=== PATIENT | male | born 1980 | race Two or more races ===

== ENCOUNTER 2023-04-01 11:27 | Emergency (ER) | payer OTHER ==
[~2023-04-01] VITALS: Ht 170.2 cm; Wt 84.4 kg
[2023-04-01] MEDS ORDERED: TAMS-35 PO (12:23)
[2023-04-01 12:31] VITALS: BP 93/72; PULSE 73; RESP 18; O2SAT 95
== END 2023-04-01 12:39 | disposition home or self-care (01) ==
LOC: ER 11:27
DX: N31.9 Neuromuscular dysfunction of bladder, unspecified (principal); R33.9 Retention of urine, unspecified; F17.210 Nicotine dependence, cigarettes, uncomplicated; F15.90 Other stimulant use, unspecified, uncomplicated; Z98.890 Other specified postprocedural states

== ENCOUNTER 2023-04-03 15:53 | Emergency (ER) | payer OTHER ==
[~2023-04-03] VITALS: Ht 170.2 cm; Wt 86.4 kg
[~2023-04-03 15:53] MED LIST: TAMS-35 PO
[2023-04-03] MEDS ORDERED: CEPH250C PO (16:55)
[2023-04-03] MEDS ORDERED: LIDOCAINE 2% JELLY 11ml (GLYDO) UR ONE (18:45)
[2023-04-03 19:01] VITALS: BP 134/88; PULSE 84; RESP 16; TEMP 97.8; O2SAT 97
== END 2023-04-03 19:08 | disposition home or self-care (01) ==
LOC: ER 15:53
DX: R33.9 Retention of urine, unspecified (principal); N31.2 Flaccid neuropathic bladder, not elsewhere classified
CPT/HCPCS: 51702

== ENCOUNTER → 2023-04-28 | Outpatient (CLI) | payer OTHER ==
[~2023-04-28] MED LIST changes: +CEPH250C PO
[2023-04-28 17:02] LABS: Urine Bacteria FEW /hpf (None Seen); Urine Blood 2+ /uL (Negative); Urine Clarity HAZY (Clear); Urine Color Yellow (Yellow); Urine Protein, UAD 1+ (Negative); Urine Specific Gravity 1.022 (1.001-1.035); Urine Urobilinogen Normal (Negative); Urine WBC 69 /hpf (0 - 3)
== END | disposition home or self-care (01) ==
LOC: LAB 16:21
PROVIDERS: ATTEND Urology
DX: R33.9 Retention of urine, unspecified (principal)
CPT/HCPCS: 81001; 87086; 87088; 87186

== ENCOUNTER 2023-05-16 07:29 | Day surgery (SDC) | payer OTHER ==
[2023-05-12 12:31] LABS: Basophils # (auto) 0.1 10 ^3/uL (0-0.2); Eosinophils # (auto) 0.1 10 ^3/uL (0-0.8); Eosinophils % (auto) 2.3 % (0.0-7.0); Hematocrit 44.7 % (41.0-53.0); Hemoglobin 15.3 g/dL (13.5-17.5); Lymphocytes % (auto) 32.4 % (10.0-50.0); Mean Corpuscular Hemoglobin 29.2 pg (28.0-32.0); Mean Corpuscular Hgb Conc. 34.1 g/dL (32.0-36.0); Mean Corpuscular Volume 85.6 fL (80.0-100.0); Monocytes # (auto) 0.5 10 ^3/uL (0-1.3); Monocytes % (auto) 8.2 % (0.0-12.0); Neutrophils # (auto) 3.5 10 ^3/uL (1.6-8.6); Neutrophils % (auto) 56.1 % (37.0-80.0); Nucleated Red Blood Cells % 0.1 %; Red Blood Cells 5.22 10^6/uL (4.5-5.90); Red Cell Distribution Width 13.2 % (11.8-14.3); White Blood Cell 6.3 10^3/uL (4.4-10.8)
[2023-05-12 12:46] LABS: INR 0.99 (0.9-1.15); Partial Thromboplastin Time 27.7 SEC (24.5-34.5); Prothrombin Time 10.4 sec (9.3-11.8)
[2023-05-12 12:54] LABS: Alanine Aminotransferase 62 U/L (7-40); Albumin 4.5 g/dL (3.2-4.8); Alkaline Phosphatase 91 U/L (46-116); Anion Gap 7 (5-15); Aspartate Aminotransferase 24 U/L (13-40); BUN/Creatinine Ratio 11.8 (10.0-20.0); Blood Urea Nitrogen 13 mg/dL (9-23); Calcium 9.3 mg/dL (8.7-10.4); Carbon Dioxide 27 mmol/L (20-30); Chloride 103 mmol/L (98-107); Glucose 108 mg/dL (74-106); Potassium 3.5 mmol/L (3.5-5.1); Sodium 137 mmol/L (136-145)
[2023-05-12 12:55] LABS: Bilirubin, Total 0.5 mg/dL (0.2-1.0); Total Protein 7.2 g/dL (5.7-8.2)
[2023-05-12 14:28] LABS: Urine Bacteria NONE SEEN /hpf (None Seen); Urine Clarity CLEAR (Clear); Urine Color Yellow (Yellow); Urine Mucus FEW (None Seen); Urine Specific Gravity 1.025 (1.001-1.035); Urine WBC 5 /hpf (0 - 3)
[2023-05-12 14:29] LABS: Urine Blood Trace /uL (Negative); Urine Protein, UAD 1+ (Negative); Urine Urobilinogen Normal (Negative)
[~2023-05-16] VITALS: Ht 170.2 cm; Wt 84.8 kg
[2023-05-16] MEDS ORDERED: fentaNYL CITRATE 100 MCG/2 ML VL ONE (09:59)
[2023-05-16] MEDS ORDERED: PROPOFOL 10 MG/ML 20 ML IV ONE (09:59)
[2023-05-16] MEDS ORDERED: ONDANSETRON HCL 4 MG/2 ML VIAL IV PRN (10:00)
[2023-05-16] MEDS ORDERED: METOCLOPRAMIDE HCL 5MG/ml INJ 2ml VIAL IV PRN (10:00)
[2023-05-16] MEDS ORDERED: HYDROmorphone HCL 2 MG/ML VL/or syr IV PRN (10:00)
[2023-05-16] MEDS ORDERED: MEPERIDINE HCL (25 MG/ML) 1ML VIAL IV PRN (10:00)
[2023-05-16] MEDS ORDERED: cefTRIAXone 1GM/50ML D5W 50 ML IV ONE (10:13)
[2023-05-16] MEDS ORDERED: MEPERIDINE HCL (25 MG/ML) 1ML VIAL ONE (10:31)
[2023-05-16] MEDS ORDERED: DexAMETHasone SOD PHOS 10MG/1ML VIAL INJ ONE (10:37)
[2023-05-16] MEDS ORDERED: ONDANSETRON HCL 4 MG/2 ML VIAL ONE (10:37)
[2023-05-16 10:47] VITALS: TEMP 97; O2SAT 94
[2023-05-16 11:46] VITALS: BP 121/80; PULSE 69; RESP 12; O2SAT 100
== END 2023-05-16 11:48 | disposition home or self-care (01) ==
LOC: SUR 07:29
PROVIDERS: ATTEND Urology
DX: N35.819 Other urethral stricture, male, unspecified site (principal); N32.3 Diverticulum of bladder; N32.89 Other specified disorders of bladder; N31.9 Neuromuscular dysfunction of bladder, unspecified
CPT/HCPCS: 36415; 52281; 80053; 81001; 85025; 85610; 85730; 87086; C1769; J0696; J1100; J2175; J2405; J2704; J3010; J7030

== ENCOUNTER 2023-06-27 03:47 | Emergency (ER) | payer OTHER ==
[~2023-06-27] VITALS: Ht 170.2 cm; Wt 86.3 kg
[2023-06-27 07:50] VITALS: BP 121/80; PULSE 70; RESP 14; TEMP 98.1; O2SAT 99
[2023-06-27 09:03] LABS: Urine Bacteria MANY /hpf (None Seen); Urine Blood 1+ /uL (Negative); Urine Clarity CLOUDY (Clear); Urine Color PINK (Yellow); Urine Hyaline Cast FEW /lpf (0 - 2); Urine Mucus FEW (None Seen); Urine Protein, UAD 3+ (Negative); Urine Specific Gravity 1.022 (1.001-1.035); Urine Urobilinogen Normal (Negative); Urine WBC 1480 /hpf (0 - 3)
== END 2023-06-27 09:17 | disposition home or self-care (01) ==
LOC: ER 03:47
DX: N31.9 Neuromuscular dysfunction of bladder, unspecified (principal); F17.210 Nicotine dependence, cigarettes, uncomplicated; F12.10 Cannabis abuse, uncomplicated
CPT/HCPCS: 51702; 81001

== ENCOUNTER 2023-08-05 16:02 | Emergency (ER) | payer OTHER ==
[~2023-08-05] VITALS: Ht 170.2 cm; Wt 84.0 kg
[2023-08-05 18:50] VITALS: BP 133/88; PULSE 70; RESP 20; TEMP 98.1; O2SAT 98
[2023-08-05] MEDS ORDERED: TETRACAINE HCL 0.5% OPTH(EYE) SOLN 4ML LEFTEYE ONE (19:45)
[2023-08-05] MEDS ORDERED: FLUORESCEIN SOD OPTH TEST STRIP LEFTEYE ONE (19:45)
[2023-08-05] MEDS ORDERED: ERY05OO OP (20:50)
[2023-08-05] MEDS ORDERED: ERYTHROMY OPTH OINT 5mg/gm 1gm or 3.5gm tube OP ONE (21:00)
== END 2023-08-05 20:54 | disposition home or self-care (01) ==
LOC: ER 16:02
DX: S05.01XA Injury of conjunctiva and corneal abrasion without foreign body, right eye, initial encounter (principal); F17.210 Nicotine dependence, cigarettes, uncomplicated; F15.90 Other stimulant use, unspecified, uncomplicated; Z79.899 Other long term (current) drug therapy; W22.8XXA Striking against or struck by other objects, initial encounter; Y93.89 Activity, other specified; Y92.098 Other place in other non-institutional residence as the place of occurrence of the external cause; Y99.8 Other external cause status

== ENCOUNTER → 2023-08-16 | Outpatient (CLI) | payer OTHER ==
[~2023-08-16] MED LIST changes: -CEPH250C PO; +ERY05OO OP; -TAMS-35 PO
[2023-08-16 10:20] LABS: Basophils # (auto) 0 10 ^3/uL (0-0.2); Basophils % (auto) 1.2 % (0.0-2.0); Eosinophils # (auto) 0.1 10 ^3/uL (0-0.8); Eosinophils % (auto) 2.3 % (0.0-7.0); Hematocrit 43.4 % (41.0-53.0); Hemoglobin 14.4 g/dL (13.5-17.5); Lymphocytes # (auto) 1.7 10 ^3/uL (0.4-5.4); Lymphocytes % (auto) 44.3 % (10.0-50.0); Mean Corpuscular Hemoglobin 28.6 pg (28.0-32.0); Mean Corpuscular Hgb Conc. 33.2 g/dL (32.0-36.0); Monocytes # (auto) 0.3 10 ^3/uL (0-1.3); Monocytes % (auto) 7.4 % (0.0-12.0); Neutrophils # (auto) 1.7 10 ^3/uL (1.6-8.6); Neutrophils % (auto) 44.8 % (37.0-80.0); Nucleated Red Blood Cells % 0.1 %; Red Blood Cells 5.05 10^6/uL (4.5-5.90); Red Cell Distribution Width 13.4 % (11.8-14.3); White Blood Cell 3.9 10^3/uL (4.4-10.8)
[2023-08-16 10:58] LABS: Anion Gap 5 (5-15); BUN/Creatinine Ratio 12.8 (10.0-20.0); Blood Urea Nitrogen 12 mg/dL (9-23); Calcium 8.9 mg/dL (8.7-10.4); Carbon Dioxide 26 mmol/L (20-30); Chloride 108 mmol/L (98-107); Free T3 3.57 pg/mL (2.3-4.2); Free T4 (Free Thyroxine) 0.98 ng/dL (0.89-1.76); Glucose 99 mg/dL (74-106); Potassium 4.1 mmol/L (3.5-5.1); Prostate Specific Antigen 0.27 ng/mL (0.0-4.0); Sodium 139 mmol/L (136-145); T3 Total 1.62 ng/mL (0.60-1.81); Uric Acid 4.4 mg/dL (3.7-9.2)
[2023-08-16 11:14] LABS: % Iron Saturation 18.8 % (20-55)
[2023-08-16 11:45] LABS: Cholesterol 196 mg/dL (< 200); Triglycerides 104 mg/dL (< 150)
[2023-08-16 11:46] LABS: HDL Cholesterol 47 mg/dL (40-59); LDL Cholesterol 141 mg/dL (< 100)
== END | disposition home or self-care (01) ==
LOC: LAB 09:52
PROVIDERS: ATTEND Family Medicine
DX: Z00.00 Encounter for general adult medical examination without abnormal findings (principal); Z13.31 Encounter for screening for depression; N52.1 Erectile dysfunction due to diseases classified elsewhere; Z78.9 Other specified health status
CPT/HCPCS: 36415; 80048; 80061; 82306; 82607; 83540; 83550; 84153; 84403; 84439; 84480; 84481; 84550; 85025

== ENCOUNTER → 2024-09-12 | Outpatient (CLI) | payer OTHER ==
[2024-09-12 12:43] LABS: Basophils # (auto) 0.1 10 ^3/uL (0-0.2); Basophils % (auto) 1.3 % (0.0-2.0); Eosinophils # (auto) 0.2 10 ^3/uL (0-0.8); Hematocrit 45.5 % (41.0-53.0); Hemoglobin 15.6 g/dL (13.5-17.5); Lymphocytes # (auto) 2.1 10 ^3/uL (0.4-5.4); Lymphocytes % (auto) 39.2 % (10.0-50.0); Mean Corpuscular Hemoglobin 29.2 pg (28.0-32.0); Mean Corpuscular Hgb Conc. 34.2 g/dL (32.0-36.0); Mean Corpuscular Volume 85.4 fL (80.0-100.0); Monocytes # (auto) 0.5 10 ^3/uL (0-1.3); Neutrophils # (auto) 2.5 10 ^3/uL (1.6-8.6); Neutrophils % (auto) 46.5 % (37.0-80.0); Nucleated Red Blood Cells % 0.1 %; Platelet Count (auto) 363 10^3/uL (140-450); Red Blood Cells 5.33 10^6/uL (4.5-5.90); Red Cell Distribution Width 13.5 % (11.8-14.3); White Blood Cell 5.3 10^3/uL (4.4-10.8)
[2024-09-12 13:15] LABS: Erythrocyte Sedimentation Rate 8 mm/hr (0-20)
[2024-09-12 13:26] LABS: Alanine Aminotransferase 33 U/L (7-40); Alkaline Phosphatase 100 U/L (46-116); Anion Gap 7 (5-15); Aspartate Aminotransferase 17 U/L (13-40); BUN/Creatinine Ratio 11.6 (10.0-20.0); Blood Urea Nitrogen 14 mg/dL (9-23); Calcium 10.1 mg/dL (8.7-10.4); Carbon Dioxide 25 mmol/L (20-31); Glucose 102 mg/dL (74-106); HDL Cholesterol 47 mg/dL (40-59); Potassium 4.3 mmol/L (3.5-5.1); Prostate Specific Antigen 0.25 ng/mL (0.0-4.0); Sodium 140 mmol/L (136-145); Total Protein 7.7 g/dL (5.7-8.2)
[2024-09-12 13:27] LABS: % Iron Saturation 40.9 % (20-55); Bilirubin, Total 0.8 mg/dL (0.2-1.0); Cortisol,PM 10.83 ug/dL (3.44-16.76)
[2024-09-12 13:29] LABS: Folate (Folic Acid) 12.86 ng/mL (>5.38); Free T3 3.81 pg/mL (2.3-4.2)
[2024-09-12 13:31] LABS: Free T4 (Free Thyroxine) 1.15 ng/dL (0.89-1.76)
[2024-09-12 13:33] LABS: Albumin 4.9 g/dL (3.2-4.8); Chloride 108 mmol/L (98-107); Cholesterol 255 mg/dL (< 200); LDL Cholesterol 192 mg/dL (< 100); Triglycerides 166 mg/dL (< 150)
[2024-09-12 15:51] LABS: Urine Bacteria MANY /hpf (None Seen); Urine Blood Negative /uL (Negative); Urine Clarity Turbid (Clear); Urine Color Yellow (Yellow); Urine Mucus FEW (None Seen); Urine Protein, UAD Negative (Negative); Urine Specific Gravity 1.014 (1.001-1.035); Urine Squamous Epithelial Cell FEW /hpf (<5); Urine Urobilinogen Normal (Negative); Urine WBC 111 /HPF (0-3); Urine pH 5.5 (5.0-9.0)
[2024-09-12 16:19] LABS: Amphetamine Screen, Urine Neg (NEGATIVE); Barbiturate Scree,Urine Neg (NEGATIVE); Benzodiazephine Screen, Urine Neg (NEGATIVE); Cannabinoid Screen, Urine Pos (NEGATIVE); Cocaine Screen, Urine Neg (NEGATIVE); Opiate Scree,Urine Neg (NEGATIVE); Phencyclidine Screen, Urine Neg (NEGATIVE)
[2024-09-13 07:07] LABS: RPR Non Reactive (Non Reactive)
[2024-09-13 08:06] LABS: Rheumatoid Arthritis Factor <10.0 IU/mL (<14.0)
== END | disposition home or self-care (01) ==
LOC: LAB 12:20
PROVIDERS: ATTEND Family Medicine
DX: F32.9 Major depressive disorder, single episode, unspecified (principal); R32 Unspecified urinary incontinence; Z00.00 Encounter for general adult medical examination without abnormal findings; Z68.29 Body mass index [BMI] 29.0-29.9, adult; Z78.9 Other specified health status
CPT/HCPCS: 36415; 80053; 80061; 80307; 81001; 82533; 82607; 82746; 83036; 83540; 83550; 84153; 84403; 84439; 84443; 84481; 85025; 85652; 86431; 86592

== ENCOUNTER 2025-05-12 09:04 | Outpatient (CLI) | payer OTHER ==
[2025-05-12 10:21] LABS: Hematocrit 45.2 % (41.0-53.0); Hemoglobin 15.6 g/dL (13.5-17.5); Mean Corpuscular Hemoglobin 29.5 pg (28.0-32.0); Mean Corpuscular Volume 85.1 fL (80.0-100.0); Nucleated Red Blood Cells % 0.1 %
[2025-05-12 10:36] LABS: Urine Budding Yeast OCCASIONAL /hpf (None Seen); Urine Protein, UAD Negative (Negative)
[2025-05-12 10:40] LABS: Alanine Aminotransferase 31 U/L (7-40); Albumin 4.7 g/dL (3.2-4.8); Alkaline Phosphatase 92 U/L (46-116); Anion Gap 9 (5-15); BUN/Creatinine Ratio 10.7 (10.0-20.0); Blood Urea Nitrogen 11 mg/dL (9-23); Calcium 9.4 mg/dL (8.7-10.4); Carbon Dioxide 26 mmol/L (20-31); Chloride 104 mmol/L (98-107); Glucose 83 mg/dL (74-106); HDL Cholesterol 58 mg/dL (40-59); Magnesium 2.1 mg/dL (1.6-2.6); Potassium 3.6 mmol/L (3.5-5.1); Sodium 139 mmol/L (136-145); Total Protein 7.8 g/dL (5.7-8.2)
[2025-05-12 10:41] LABS: Bilirubin, Total 0.4 mg/dL (0.2-1.0)
[2025-05-12 10:47] LABS: Cholesterol 242 mg/dL (< 200); Triglycerides 190 mg/dL (< 150)
[2025-05-12 12:04] LABS: Uric Acid 4.2 mg/dL (3.7-9.2)
[2025-05-12 13:22] LABS: Iron 134.0 ug/dL (65-175)
[2025-05-12 13:24] LABS: Total Iron Binding Capacity 356.0 ug/dL (250-425)
[2025-05-12 14:02] LABS: Prostate Specific Antigen 0.37 ng/mL (0.0-4.0)
[2025-05-12 14:07] LABS: Free T3 3.62 pg/mL (2.3-4.2)
[2025-05-12 14:09] LABS: Free T4 (Free Thyroxine) 1.18 ng/dL (0.89-1.76)
== END 2025-05-12 17:00 | disposition home or self-care (01) ==
LOC: LAB 09:04
PROVIDERS: ATTEND Family Medicine
DX: Z00.00 Encounter for general adult medical examination without abnormal findings (principal)
CPT/HCPCS: 36415; 80053; 80061; 81001; 82306; 82607; 83036; 83540; 83550; 83735; 84153; 84403; 84439; 84443; 84480; 84481; 84550; 85025; 87086